=== PATIENT | female | born 2000 | race Caucasian/White ===

== ENCOUNTER 2022-03-30 19:14 | Emergency (ER) | payer MEDICAID ==
--- NOTE | 2022-03-30 19:21 | ED General ---
General Stated Complaint: NAUSEA,LIGHTHEADED,SYNCOPAL History of Present Illness Date Seen by Provider: Mar 30, 2022 Time Seen by Provider: 19:21 Initial Comments 22-year-old female with PMH of celiac disease/menorrhagia, is here with complaints of feeling lightheaded and fainting yesterday, nauseated with myalgias and cramping and excessive menstrual loss. Patient started her menstruation last and has been bleeding heavier than usual, and bleeding through her tampons, changing 5-6 tampons per day. Patient is on control and it was recently changed by her PCP. Patient also complains of dysuria over the past 2 weeks. In spite of being on control patient is having approximately 2 periods a month. Patient recently moved from [place] so her PCP is in [place]. Patient fainted yesterday but her boyfriend caught her so she did not fall. Patient has been trying to eat and drink adequately. Denies fever, abdominal pain, diarrhea, chest pain, palpitations. Patient had COVID 3 weeks ago and came out of quarantine 2 weeks ago. Pt is fine in the ER and is watching a movie on her phone without any apparent problems. Allergies and Home Medications Allergies Coded Allergies: No Known Drug Allergies (Unverified , 03/30/22) Patient Home Medication List Home Medication List Reviewed: Yes Review of Systems Review of Systems Constitutional: no symptoms reported, dizziness, malaise EENTM: no symptoms reported Respiratory: no symptoms reported Cardiovascular: no symptoms reported Gastrointestinal: nausea Genitourinary: dysuria Musculoskeletal: no symptoms reported Skin: no symptoms reported Psychiatric/Neurological: No Symptoms Reported Hematologic/Lymphatic: No Symptoms Reported Immunological/Allergic: no symptoms reported Physical Exam Vital Signs Vital Signs - First Documented 03/30/22 19:17 Temp 36.4 Pulse 98 Resp 18 B/P (MAP) 120/79 (93) Pulse Ox 97 O2 Delivery Room Air Capillary Refill : Height, Weight, BMI Height: '" Weight: lbs. oz. kg; BMI Method: General Appearance: No Apparent Distress HEENT: PERRL/EOMI, Normal ENT Inspection Neck: Full Range of Motion, Normal Inspection, Non Tender Respiratory: Chest Non Tender, Lungs Clear, Normal Breath Sounds Cardiovascular: Regular Rate, Rhythm, No Murmur Gastrointestinal: Normal Bowel Sounds, Non Tender, Soft Back: No CVA Tenderness, No Vertebral Tenderness Extremity: Normal Range of Motion, Non Tender Neurologic/Psychiatric: Alert, Oriented x3, No Motor/Sensory Deficits Skin: Normal Color Progress/Results/Core Measures Suspected Sepsis SIRS Temperature: Pulse: Respiratory Rate: Laboratory Tests 03/30/22 19:34: White Blood Count 11.0 Blood Pressure / Mean: Laboratory Tests 03/30/22 19:34: Creatinine 0.74, Platelet Count 623H, Total Bilirubin 0.3 Results/Orders Lab Results Laboratory Tests Test 03/30/22 19:20 03/30/22 19:34 Range/Units Urine Color YELLOW Urine Clarity CLEAR Urine pH 7.5 5-9 Urine Specific [place] 1.020 1.016-1.022 Urine Protein NEGATIVE NEGATIVE Urine Glucose (UA) NEGATIVE NEGATIVE Urine Ketones NEGATIVE NEGATIVE Urine Nitrite NEGATIVE NEGATIVE Urine Bilirubin NEGATIVE NEGATIVE Urine Urobilinogen 0.2 < = 1.0 MG/DL Urine Leukocyte Esterase NEGATIVE NEGATIVE Urine RBC (Auto) NEGATIVE NEGATIVE Urine RBC NONE /HPF Urine WBC 2-5 /HPF Urine Squamous Epithelial Cells 10-25 H /HPF Urine Crystals PRESENT H /LPF Urine Amorphous Sediment FEW NOELLE PHOSPHATE H /LPF Urine Bacteria FEW H /HPF Urine Casts NONE /LPF Urine Mucus NEGATIVE /LPF Urine Culture Indicated NO Urine Test NEGATIVE NEGATIVE Urine Opiates Screen NEGATIVE NEGATIVE Urine Oxycodone Screen NEGATIVE NEGATIVE Urine Methadone Screen NEGATIVE NEGATIVE Urine Propoxyphene Screen NEGATIVE NEGATIVE Urine Barbiturates Screen NEGATIVE NEGATIVE Ur Tricyclic Antidepressants Screen NEGATIVE NEGATIVE Urine Phencyclidine Screen NEGATIVE NEGATIVE Urine Amphetamines Screen NEGATIVE NEGATIVE Urine Methamphetamines Screen NEGATIVE NEGATIVE Urine Benzodiazepines Screen NEGATIVE NEGATIVE Urine Cocaine Screen NEGATIVE NEGATIVE Urine Cannabinoids Screen NEGATIVE NEGATIVE White Blood Count 11.0 4.3-11.0 10^3/uL Red Blood Count 4.75 3.80-5.11 10^6/uL Hemoglobin 12.1 11.5-16.0 g/dL Hematocrit 38 35-52 % Mean Corpuscular Volume 80 80-99 fL Mean Corpuscular Hemoglobin 26 25-34 pg Mean Corpuscular Hemoglobin Concent 32 32-36 g/dL Red Cell Distribution Width 16.1 H 10.0-14.5 % Platelet Count 623 H 130-400 10^3/uL Mean Platelet Volume 9.8 9.0-12.2 fL Immature Granulocyte % (Auto) 0 % Neutrophils (%) (Auto) 62 42-75 % Lymphocytes (%) (Auto) 28 12-44 % Monocytes (%) (Auto) 7 0-12 % Eosinophils (%) (Auto) 2 0-10 % Basophils (%) (Auto) 1 0-10 % Neutrophils # (Auto) 6.8 1.8-7.8 10^3/uL Lymphocytes # (Auto) 3.1 1.0-4.0 10^3/uL Monocytes # (Auto) 0.8 0.0-1.0 10^3/uL Eosinophils # (Auto) 0.2 0.0-0.3 10^3/uL Basophils # (Auto) 0.1 0.0-0.1 10^3/uL Immature Granulocyte # (Auto) 0.0 0.0-0.1 10^3/uL Sodium Level 137 135-145 MMOL/L Potassium Level 3.8 3.6-5.0 MMOL/L Chloride Level 104 98-107 MMOL/L Carbon Dioxide Level 23 21-32 MMOL/L Anion Gap 10 5-14 MMOL/L Blood Urea Nitrogen 13 7-18 MG/DL Creatinine 0.74 0.60-1.30 MG/DL Estimat Glomerular Filtration Rate 118 BUN/Creatinine Ratio 18 Glucose Level 99 70-105 MG/DL Calcium Level 9.4 8.5-10.1 MG/DL Corrected Calcium 9.4 8.5-10.1 MG/DL Total Bilirubin 0.3 0.1-1.0 MG/DL Aspartate Amino Transf (AST/SGOT) 17 5-34 U/L Alanine Aminotransferase (ALT/SGPT) 13 0-55 U/L Alkaline Phosphatase 104 40-136 U/L Total Protein 7.8 6.4-8.2 GM/DL Albumin 4.0 3.2-4.5 GM/DL Serum Alcohol < 10 <10 MG/DL My Orders Orders - TONJA WRIGHT MD Alcohol (03/30/22 19:25) Cbc With Automated Diff (03/30/22 19:25) Comprehensive Metabolic Panel (03/30/22 19:25) Drug Screen Stat (Urine) (03/30/22 19:25) Hcg,Qualitative Urine (03/30/22 19:25) Ua Culture If Indicated (03/30/22 19:25) Ed Iv/Invasive Line Start (03/30/22 19:36) Ed Iv/Invasive Line Start (03/30/22 19:47) Ns Iv 1000 Ml (Sodium Chloride 0.9%) (03/30/22 20:00) Metoclopramide Injection (Reglan Injecti (03/30/22 20:30) Vital Signs/I&O 03/30/22 19:17 Temp 36.4 Pulse 98 Resp 18 B/P (MAP) 120/79 (93) Pulse Ox 97 O2 Delivery Room Air Capillary Refill : Progress Note : Progress Note 1. MENORRHAGIA: - CBC: Hb is 12.1 and stable - CMP normal - UA/ UDS: unremarkable - NS IVF bolus - Reglan 10mg iv in ER - Pt has a Zofran prescription at home. Pt saw her GI doctor 2 weeks ago and had a biopsy done for her celiac disease. - Advised pt to stay hydrated. Pt will need to find a new PCP. Gave pt [facility] clinic cumber to call and make an appointment with a PCP. Also advised pt to follow up with [facility]. -The patient was seen in the ED, and treated appropriately to presentation at a specific point in time. Patient is informed that there is a possibility that disease and illness can evolve and change in acuity rapidly or slowly after patient is discharged from the ER. Precautionary advice given to the patient for immediate return to ER if symptoms worsen or do not resolve, and to seek emergency care sooner rather than later. Pt also advised on the importance of PCP follow up and compliance with management and follow up plan with PCP and/or specialist, as this is part of the management plan. Pt verbally expressed understanding. Departure Impression Primary Impression: Menorrhagia Qualified Codes: N92.1 - Excessive and frequent menstruation with irregular cycle Disposition: HOME, SELF-CARE Condition: Stable Departure-Patient Inst. Referrals: NIKITA ALAMO MD Patient Instructions: Syncope (Fainting) (DC), Heavy Periods ED Add. Discharge Instructions: - Advised pt to stay hydrated. Pt will need to find a new PCP. - [facility] clinic number is [phone]. Advised to call and make an appointment with a PCP. - Also advised pt to follow up with [facility]: Dr. Alamo : Clinic number is [phone]. Call to make appointment TONJA WRIGHT MD Mar 30, 2022 19:21
[2022-03-30 19:48] LABS: BASOPHILS # (AUTO) 0.1 10^3/uL (0.0-0.1); BASOPHILS % (AUTO) 1 % (0-10); EOSINOPHILS # (AUTO) 0.2 10^3/uL (0.0-0.3); EOSINOPHILS % (AUTO) 2 % (0-10); HEMATOCRIT 38 % (35-52); HEMOGLOBIN 12.1 g/dL (11.5-16.0); LYMPHOCYTES # (AUTO) 3.1 10^3/uL (1.0-4.0); LYMPHOCYTES % (AUTO) 28 % (12-44); MEAN CORPUSCULAR HEMOGLOBIN 26 pg (25-34); MEAN CORPUSCULAR HGB CONC 32 g/dL (32-36); MEAN CORPUSCULAR VOLUME 80 fL (80-99); MEAN PLATELET VOLUME 9.8 fL (9.0-12.2); MONOCYTES # (AUTO) 0.8 10^3/uL (0.0-1.0); MONOCYTES % (AUTO) 7 % (0-12); NEUTROPHILS # (AUTO) 6.8 10^3/uL (1.8-7.8); NEUTROPHILS % (AUTO) 62 % (42-75); PLATELET COUNT 623 10^3/uL (130-400)
[2022-03-30 19:49] LABS: BILIRUBIN,URINE NEGATIVE (NEGATIVE); CLARITY,URINE CLEAR; COLOR,URINE YELLOW; GLUCOSE, URINE (UA) NEGATIVE (NEGATIVE); KETONES,URINE NEGATIVE (NEGATIVE); LEUKOCYTE ESTERASE ,URINE NEGATIVE (NEGATIVE); NITRITE,URINE NEGATIVE (NEGATIVE); PH,URINE 7.5 (5-9); PROTEIN,URINE NEGATIVE (NEGATIVE)
[2022-03-30 19:53] LABS: HCG,QUALITATIVE URINE NEGATIVE (NEGATIVE)
[2022-03-30] MEDS ORDERED: NS IV 1000 ML 1,000 ML IV SCH (20:00)
[2022-03-30 20:02] LABS: AMORPHOUS SEDIMENT,UR FEW AMOR PHOSPHATE /LPF; BACTERIA,URINE FEW /HPF
[2022-03-30 20:05] LABS: AMPHETAMINE SCREEN, URINE NEGATIVE (NEGATIVE); BARBITURATE SCREEN URINE NEGATIVE (NEGATIVE); BENZODIAZEPINES SCREEN URINE NEGATIVE (NEGATIVE); CANNABINOID SCREEN, URINE NEGATIVE (NEGATIVE); COCAINE SCREEN URINE NEGATIVE (NEGATIVE); METHADONE STAT NEGATIVE (NEGATIVE); OPIATE SCREEN URINE NEGATIVE (NEGATIVE); OXYCODONE STAT NEGATIVE (NEGATIVE); PROPOXYPHENE STAT NEGATIVE (NEGATIVE); TRICYCLIC ANTIDEPRESSANTS SCRE NEGATIVE (NEGATIVE)
[2022-03-30 20:10] LABS: ALANINE AMINOTRANSFERASE 13 U/L (0-55); ALKALINE PHOSPHATASE 104 U/L (40-136); BILIRUBIN,TOTAL 0.3 MG/DL (0.1-1.0); BUN/CREATININE RATIO 18; CALCIUM 9.4 MG/DL (8.5-10.1); CARBON DIOXIDE 23 MMOL/L (21-32); CHLORIDE 104 MMOL/L (98-107); CREATININE SERUM 0.74 MG/DL (0.60-1.30); GFR ESTIMATED 118; GLUCOSE 99 MG/DL (70-105); POTASSIUM 3.8 MMOL/L (3.6-5.0); SODIUM 137 MMOL/L (135-145); TOTAL PROTEIN 7.8 GM/DL (6.4-8.2)
[2022-03-30] MEDS ORDERED: METOCLOPRAMIDE INJ 10 MG/2 ML (REGLAN) IVP ONE (20:30)
[2022-03-30 20:33] VITALS: BP 135/62
== END 2022-03-30 20:57 | disposition home or self-care (01) ==
LOC: ER FS 19:16
DX: N92.0 Excessive and frequent menstruation with regular cycle (principal); Z32.02 Encounter for pregnancy test, result negative; Z86.16 Personal history of COVID-19; Z28.310 Unvaccinated for COVID-19
CPT/HCPCS: 36415; 80053; 80306; 81000; 84703; 85025; 99284; G0480; 80320

== ENCOUNTER 2022-04-29 20:46 | Emergency (ER) | payer MEDICAID ==
[~2022-04-29] VITALS: Ht 168 cm; Wt 65.8 kg
[2022-04-29 21:27] VITALS: BP 115/86
[2022-04-29] MEDS ORDERED: OMEP20CA18 PO (21:34)
[2022-04-29] MEDS ORDERED: NORG1TAB83 (21:34)
[2022-04-29] MEDS ORDERED: HYDR25CA PO (21:34)
[2022-04-29 21:44] LABS: BILIRUBIN,URINE NEGATIVE (NEGATIVE); CLARITY,URINE CLEAR; COLOR,URINE YELLOW; GLUCOSE, URINE (UA) NEGATIVE (NEGATIVE); KETONES,URINE NEGATIVE (NEGATIVE); LEUKOCYTE ESTERASE ,URINE NEGATIVE (NEGATIVE); NITRITE,URINE NEGATIVE (NEGATIVE); PH,URINE 6.5 (5-9); PROTEIN,URINE NEGATIVE (NEGATIVE)
--- NOTE | 2022-04-29 21:48 | ED GU-Female ---
General Chief Complaint: - Reproductive Stated Complaint: VAG PAIN Nursing Triage Note: C/O 2 EPISODES INTERMITTANT SHARP VAGINAL PAIN LASTING APPROX. 15MIN SINCE 04/02/22 Source: patient Exam Limitations: no limitations History of Present Illness Date Seen by Provider: Apr 29, 2022 Time Seen by Provider: 21:33 Initial Comments Here with intermittent intervaginal pain that last about 10 to 15 minutes and then goes away. She has had it twice in the last month including once this evening. She moved to the [facility] from [place] recently and does not have a local doctor. She is familiar with [facility] in [place]. She was told that she needed to get a Pap smear and ultrasound at some point but she has not established care yet. Denies vaginal discharge or bleeding. She does admit to irregular menstrual periods despite being on oral control pill. She does not have pain with sexual activity. She denies dysuria but states she sometimes feels like she has a yeast infection. She states she has been checked for that previously and she did not have it. Does use tampons and denies that she has any retained products. Timing/Duration: this evening, intermittent, gone now Severity/Quality: moderate, aching Location: vaginal Radiation: none Activities at Onset: none Sexual [place] History: less than 2 months ago, single partner Modifying Factors: Improves With Resting Associated Symptoms: No fever/chills, No lower back pain, No nausea/vomiting, No urinary frequency Allergies and Home Medications Allergies Coded Allergies: No Known Drug Allergies (Unverified , 03/30/22) Patient Home Medication List Home Medication List Reviewed: Yes Hydroxyzine Pamoate (Vistaril) 25 Mg Capsule, Unknown Dose PO, (Reported) Entered as Reported by: NILDA NUR on 04/29/222133 Last Action: New Order Norgestimate-Ethinyl Estradiol (Lkl-Zd-Hukjhiwu Tablet) 9YKPRD2 Lo Tablet, (Reported) Entered as Reported by: NILDA NUR on 04/29/222133 Last Action: New Order Omeprazole (Omeprazole) 20 Mg Capsule.dr, 20 MG PO, (Reported) Entered as Reported by: NILDA NUR on 04/29/222133 Last Action: New Order Review of Systems Review of Systems Constitutional: see HPI; No chills, No fever Respiratory: No cough, No short of breath Gastrointestinal: No nausea, No vomiting Genitourinary: denies flank pain, denies hematuria; pain Skin: No change in color, No lesions Past Vzcjhvc-Kosral-Ulpuvt Hx Patient Social History Tobacco Use?: Yes Substance use?: No Alcohol Use?: Yes Alcohol Frequency: Once in a while Pt feels they are or have been: No Immunizations Up To Date First/Initial COVID19 Vaccinat: NONE Past Medical History Surgery/Hospitalization HX: CELIAC DISEASE, GERD, ANXIETY, IRREGULAR MENSES Surgeries: No Last Menstrual Period: Mar 15, 2022 Family Medical History Reviewed Nursing Family Hx Other Conditions/Hx (Endometriosis) Physical Exam Vital Signs Vital Signs - First Documented 04/29/22 21:27 Temp 36.7 Pulse 83 Resp 14 B/P (MAP) 115/86 (96) Pulse Ox 98 O2 Delivery Room Air Capillary Refill : Less Than 3 Seconds Height, Weight, BMI Height: '" Weight: lbs. oz. kg; 23.00 BMI Method: General Appearance: WD/WN, no apparent distress Cardiovascular: regular rate, rhythm, no murmur Respiratory: lungs clear, normal breath sounds Gastrointestinal: soft; No guarding, No rebound; tenderness (Suprapubic) Pelvic: other (Patient declined and will get exam at clinic) Neurologic/Psychiatric: alert, oriented x 3 Skin: normal color, warm/dry Progress/Results/Core Measures Suspected Sepsis SIRS Temperature: Pulse: 83 Respiratory Rate: 14 Blood Pressure 115 /86 Mean: 96 Results/Orders Lab Results Laboratory Tests Test 04/29/22 21:33 Range/Units Urine Color YELLOW Urine Clarity CLEAR Urine pH 6.5 5-9 Urine Specific [place] 1.020 1.016-1.022 Urine Protein NEGATIVE NEGATIVE Urine Glucose (UA) NEGATIVE NEGATIVE Urine Ketones NEGATIVE NEGATIVE Urine Nitrite NEGATIVE NEGATIVE Urine Bilirubin NEGATIVE NEGATIVE Urine Urobilinogen 0.2 < = 1.0 MG/DL Urine Leukocyte Esterase NEGATIVE NEGATIVE Urine RBC (Auto) NEGATIVE NEGATIVE Urine RBC NONE /HPF Urine WBC 2-5 /HPF Urine Squamous Epithelial Cells 0-2 /HPF Urine Crystals NONE /LPF Urine Bacteria FEW H /HPF Urine Casts NONE /LPF Urine Mucus SMALL H /LPF Urine Culture Indicated YES Urine Test NEGATIVE NEGATIVE My Orders Orders - ANIYA AN MD Hcg,Qualitative Urine (04/29/22 21:32) Ua Culture If Indicated (04/29/22 21:32) Wet Prep (04/29/22 21:34) Neis Maykel Dna Urine Test (04/29/22 21:49) Chlamydia Trachomatis Urine (04/29/22 21:49) Urine Culture (04/29/22 21:33) Vital Signs/I&O 04/29/22 21:27 Temp 36.7 Pulse 83 Resp 14 B/P (MAP) 115/86 (96) Pulse Ox 98 O2 Delivery Room Air Capillary Refill : Less Than 3 Seconds Blood Pressure Mean: 96 Progress Note : Progress Note UASeen and evaluated. A, UCG and wet prep ordered. I did discuss with her about pelvic exam. Given that her pain has resolved, she would prefer to do that at clinic so she can get wet prep and then referral for ultrasound if needed. This is reasonable given her current symptoms. 2149: Wet prep is n egative for clue, trichomoniasis, yeast but positive for few WBCs and sperm. Given the WBCs noted, I have added GC and chlamydia on the urine. She is not having any vaginal discharge so we will hold treatment pending results. Pending UA and UCG. Monitor patient. 09/30/2007: UA and UCG negative. She will follow- up in clinic. Discharged home with return precautions. Patient verbalized understanding of instructions and agreement with plan. Departure Impression Primary Impression: Vaginal pain Disposition: 01 HOME, SELF-CARE Condition: Improved Departure-Patient Inst. Decision time for Depature: 22:09 Referrals: NO,LOCAL PHYSICIAN (PCP/Family) Primary Care Physician Patient Instructions: Pelvic Pain ED Add. Discharge Instructions: All discharge instructions reviewed with patient and/or family. Voiced u nderstanding. You may take ibuprofen 400 or 600 mg every 8 hours as needed for pain. You may continue Midol as needed. Follow-up with [facility] in [place] for recheck and further evaluation and to get women's health exam. Return for worse pain or pain that is persisting, vaginal discharge or bleeding, weakness, fever or other concerns as needed. Copy Copies To 1: THELMA BONILLA MD, TIMOTHY D MD Apr 29, 2022 21:48
[2022-04-29 21:54] LABS: BACTERIA,URINE FEW /HPF; SQUAMOUS EPITHELIAL CELL,UR 0-2 /HPF
== END 2022-04-29 22:18 | disposition home or self-care (01) ==
LOC: EDUNIT# 20:46 → ER 20:49
DX: R10.2 Pelvic and perineal pain (principal); Z72.0 Tobacco use; Z28.310 Unvaccinated for COVID-19
CPT/HCPCS: 81000; 84703; 87077; 87088; 87210; 99284